=== PATIENT | male | born 1980 ===

== ENCOUNTER 2023-04-02 22:53 | Emergency (ER) | payer BC ==
[~2023-04-02] VITALS: Ht 165.1 cm; Wt 93.0 kg
[2023-04-03] MEDS ORDERED: CYCLOBENZAPRINE10 MG PO (00:43)
[2023-04-03] MEDS ORDERED: OXYCODO-APAP1 TA2 PO (00:43)
[2023-04-03 01:05] VITALS: BP 136/99
== END 2023-04-03 01:05 | disposition home or self-care (01) | DRG 552 ==
LOC: ED 22:53
DX: M54.42 Lumbago with sciatica, left side (principal)